=== PATIENT | female | born 1995 | race Hispanic/Latino ===

== ENCOUNTER 2018-01-31 18:30 | Emergency (ER) | payer BC ==
--- NOTE | 2018-01-31 20:29 | Emergency Department Report ---
HPI - General Chief Complaint: Syncope Time Seen by Provider: 01/31/18 20:12 - HPI HPI: Room 4 The patient is a 22-year-old female presented with a chief complaint of syncope. The patient states today while getting blood drawn she began to feel "icky" and then had a syncopal episode. Patient denied any pain, palpitations, shortness of breath prior to the event. The patient complains of slight nausea but denies vomiting. Patient also complains of a slight headache. The patient reports she had a similar episode in November of this year after receiving an injection. The patient states she was never evaluated for this Location: [See above] Duration: [See above] Quality: [See above] Severity: Moderate Modifying factors: [see above] Context: [see above] Mode of transportation: Unknown ED Past Medical Hx - Past Medical History Hx GERD: Yes - Surgical History Past Surgical History?: No - Family History Family history: no significant - Social History Smoking Status: Never Smoker Substance Use Type: None (denies illicit drug use), Alcohol (rarely) - Medications Home Medications: Home Medications Medication Instructions Recorded Confirmed Last Taken Type Acetaminophen [Acetaminophen TAB] 325 mg PO Q6HR PRN 04/17/15 04/26/15 1 Week Ago History ~04/19/15 Fluticasone [Flonase] 1 spray NS QDAY PRN 04/17/15 04/26/15 04/26/15 History Lactobacillus Casei/Folic Acid 1 each PO QDAY 04/17/15 04/26/15 1 Month Ago History [[facility] Rx Capsule] ~03/26/15 Omeprazole [PriLOSEC] 40 mg PO QDAY 04/17/15 04/26/15 04/25/15 History Promethazine [Phenergan TAB] 25 mg PO Q6HR PRN #10 tab 04/26/15 Unknown Rx oxyCODONE /ACETAMINOPHEN [Percocet 1 - 2 tab PO Q4HR PRN #30 tab 04/26/15 Unknown Rx 5/325] ED Review of Systems ROS: Stated complaint: PASSED OUT Other details as noted in HPI Constitutional: no symptoms reported Eyes: denies: eye pain ENT: denies: throat pain Respiratory: denies: shortness of breath Cardiovascular: denies: chest pain, palpitations Gastrointestinal: nausea. denies: abdominal pain, vomiting Genitourinary: denies: dysuria Musculoskeletal: denies: back pain Neurological: headache Physical Exam - Physical Exam Vital Signs: Vital Signs 01/31/18 19:09 Temperature 97 F L Pulse Rate 78 Respiratory 18 Rate Blood Pressure 144/71 [Right] O2 Sat by Pulse 98 Oximetry Physical Exam: GENERAL: The patient is well-developed well-nourished female lying on stretcher not appearing to be in acute distress. [] HEENT: Normocephalic. Atraumatic. Extraocular motions are intact. Patient has moist mucous membranes. NECK: Supple. No meningitic signs are noted. Trachea midline CHEST/LUNGS: Clear to auscultation. There is no respiratory distress noted. HEART/CARDIOVASCULAR: Regular. There is no tachycardia. There is no gallop rub or murmur. ABDOMEN: Abdomen is soft, nontender. Patient has normal bowel sounds. There is no abdominal distention. SKIN: There is no rash. There is no edema. There is no diaphoresis. NEURO: The patient is awake, alert, and oriented. The patient is cooperative. The patient has no focal neurologic deficits. The patient has normal speech. Cranial nerves II through XII grossly intact, no drift MUSCULOSKELETAL: There is no evidence of acute injury. ED Course Vital Signs 01/31/18 19:09 Temperature 97 F L Pulse Rate 78 Respiratory 18 Rate Blood Pressure 144/71 [Right] O2 Sat by Pulse 98 Oximetry - Reevaluation(s) Reevaluation #1: 01/31/18 21:58 Patient remains asymptomatic. EKG reveals possible S1,Q3, T3. Will order d- dimer ED Medical Decision Making - Lab Data Laboratory Tests 01/31/18 01/31/18 19:56 22:15 D-Dimer < 135.00 Urine HCG, Qual Negative Labs from outpatient visit today here reviewed CBC, CMP, thyroid panel - EKG Data -: EKG Interpreted by Me EKG shows normal: sinus rhythm Rate: normal - EKG Data When compared to previous EKG there are: previous EKG unavailable Interpretation: nonspecific ST-T wave mega (T-wave inversion in lead 3) 01/31/18 21:57 S1 Q3 T3 - Radiology Data Radiology results: report reviewed (CT head), image reviewed (CT head) [facility] [address] [place] [address] Cat Scan Report Signed Patient: STELLA OLSON MR#: [id number] : 1994 Acct:[id number] Age/Sex: 22 / F ADM Date: 01/31/18 Loc: ED Attending Dr: Ordering Physician: FREYA BAJWA MD Date of Service: 01/31/18 Procedure(s): CT head/brain wo con Accession Number(s): [id number] cc: FREYA BAJWA MD FINAL REPORT PROCEDURE: CT HEAD/BRAIN WO CON TECHNIQUE: Computerized tomography of the head was performed without contrast material. HISTORY: syncope COMPARISON: No prior studies are available for comparison. FINDINGS: Skull and scalp: Normal. Paranasal sinuses: Normal. Ventricles and subarachnoid spaces: Normal. Cerebrum : No evidence of hemorrhage, acute infarction or mass . Cerebellum and brainstem : No evidence of hemorrhage, acute infarction or mass. Vasculature: Normal. Comments: None. IMPRESSION: Normal Examination Transcribed By: CO Dictated By: CHARAN VAZQUEZ MD Electronically Authenticated By: CHARAN VAZQUEZ MD Signed Date/Time: 01/31/182104 DD/ 04 TD/TT: 01/31/182104 - Differential Diagnosis vasovagal syncope, intracranial mass Critical care attestation.: If time is entered above; I have spent that time in minutes in the direct care of this critically ill patient, excluding procedure time. ED Disposition Clinical Impression: Vasovagal syncope Disposition: DC-01 TO HOME OR SELFCARE Is pt being admited?: No Does the pt Need Aspirin: No Condition: Stable Instructions: Syncope (ED) Additional Instructions: Return to the emergency department immediately should you develop worsening symptoms, fever, inability to tolerate food or liquid or any other concerns. Referrals: PRIMARY CAREMD [Primary Care Provider] - 3-5 Days Time of Disposition: 23:21
[2018-01-31 20:35] LABS: HCG Qualitative,Urine Negative (Negative)
--- NOTE | 2018-01-31 21:09 | Cat Scan Report ---
FINAL REPORT PROCEDURE: CT HEAD/BRAIN WO CON TECHNIQUE: Computerized tomography of the head was performed without contrast material. HISTORY: syncope COMPARISON: No prior studies are available for comparison. FINDINGS: Skull and scalp: Normal. Paranasal sinuses: Normal. Ventricles and subarachnoid spaces: Normal. Cerebrum: No evidence of hemorrhage, acute infarction or mass . Cerebellum and brainstem: No evidence of hemorrhage, acute infarction or mass. Vasculature: Normal. Comments: None. IMPRESSION: Normal Examination
[2018-01-31 23:37] VITALS: BP 136/79
== END 2018-01-31 23:38 | disposition home or self-care (01) ==
LOC: ED 18:30
DX: R55 Syncope and collapse (principal); R11.0 Nausea; R51 Headache; K21.9 Gastro-esophageal reflux disease without esophagitis; Z79.899 Other long term (current) drug therapy
CPT/HCPCS: 36415; 70450; 81025; 85379; 93005; 93010

== ENCOUNTER 2018-02-18 11:53 | Outpatient (CLI) | payer BC | END 2018-02-18 11:54 | disposition home or self-care (01) | LOC: LAB 11:53 | PROVIDERS: ATTEND Obstetrics & Gynecology | DX: N92.6 Irregular menstruation, unspecified (principal); K21.9 Gastro-esophageal reflux disease without esophagitis; F41.9 Anxiety disorder, unspecified | CPT/HCPCS: 36415; 82670; 83525; 84144; 84146; 84402 ==